=== PATIENT | female | born 1990 | race Asian ===

== ENCOUNTER 2017-07-08 09:36 | Day surgery (SDC) | payer OTHER ==
[2017-07-05 09:13] LABS: BASOPHILS # (AUTO) 0.05 x10^3/uL (0-0.1); BASOPHILS % (AUTO) 1 % (0-1); EOSINOPHILS # (AUTO) 0.03 x10^3/uL (0-0.4); EOSINOPHILS % (AUTO) 0 % (1-7); LYMPHOCYTES # (AUTO) 3.48 x10^3/uL (1-3.4); LYMPHOCYTES % (AUTO) 34 % (22-44); MD NO; MEAN CORPUSCULAR HGB CONC 33.6 g/dL (32.4-35.8); MEAN CORPUSCULAR VOLUME 80.5 fL (80-100); MEAN PLATELET VOLUME 8.2 fL (7.4-10.4); MONOCYTES # (AUTO) 0.68 x10^3/uL (0.2-0.8); MONOCYTES % (AUTO) 7 % (2-9); NEUTROPHILS # (AUTO) 6.12 x10^3/uL (1.8-6.8); NEUTROPHILS % (AUTO) 59 % (42-75); PLATELET COUNT 347 x10^3/uL (130-400); RED BLOOD COUNT 4.67 x10^6/uL (3.82-5.3); RED CELL DISTRIBUTION WIDTH 13.2 % (9.6-15.2)
[2017-07-05 09:25] LABS: ANION GAP 8 mmol/L (5-15); CALCIUM 8.7 mg/dL (8.5-10.1); CHLORIDE 106 mmol/L (98-107)
[2017-07-05 09:30] LABS: CREATININE 0.68 mg/dL (0.55-1.02); T4 (THYROXINE) 12.1 mcg/dL (4.8-13.9)
[2017-07-05 09:45] LABS: CULTURE INDICATED? YES; MICROSCOPIC INDICATED
[~2017-07-08] VITALS: Ht 154.9 cm; Wt 72.3 kg
[~2017-07-08 09:36] MED LIST: IBUP200C8 PO
[2017-07-08] MEDS ORDERED: LACTATED RINGERS 1,000 ML IV SCH (09:53)
[2017-07-08 09:54] VITALS: BP 125/81
[2017-07-08] MEDS ORDERED: SUGAMMADEX 200 MG/2 ML IVPush ONE (11:30)
[2017-07-08] MEDS ORDERED: EPINEPHRINE 1 MG/ML, 1ML ONE (11:41)
[2017-07-08] MEDS ORDERED: INDIGO CARMINE 0.8%, 5ML ONE ×2 (11:42→12:28)
[2017-07-08] MEDS ORDERED: ROCURONIUM 10 MG/ML,10ML ONE (11:49)
[2017-07-08] MEDS ORDERED: ONDANSETRON 2MG/ML, 2ML ONE ×2 (11:49→13:56)
[2017-07-08] MEDS ORDERED: CEFAZOLIN 1,000 MG ONE (11:49)
[2017-07-08] MEDS ORDERED: NEOSTIGMINE 1 MG/ML, 10ML ONE (11:49)
[2017-07-08] MEDS ORDERED: SUCCINYLCHOLINE 20 MG/ML, 10ML ONE (11:49)
[2017-07-08] MEDS ORDERED: PROPOFOL 10 MG/ML, 20ML ONE (11:49)
[2017-07-08] MEDS ORDERED: DEXAMETHASONE 4 MG/ML, 1ML ONE (11:49)
[2017-07-08] MEDS ORDERED: GLYCOPYRROLATE 0.2MG/1ML, 5ML ONE (11:49)
[2017-07-08] MEDS ORDERED: MIDAZOLAM 1 MG/ML, 2ML ONE (11:50)
[2017-07-08] MEDS ORDERED: LIDOCAINE-MPF 2% ,5ML ONE (12:05)
[2017-07-08] MEDS ORDERED: KETOROLAC 30 MG/1 ML ONE (12:05)
[2017-07-08] MEDS ORDERED: LIDOCAINE 1%-EPI 1:100K, 20ML INFIL ONE (12:39)
[2017-07-08] MEDS ORDERED: INDIGO CARMINE 0.8%, 5ML IVPB ONE (12:40)
[2017-07-08] MEDS ORDERED: FENTANYL PF 100 MCG/2ML ONE ×3 (13:22→13:44)
[2017-07-08] MEDS ORDERED: OXYcodone 5 MG/5 ML ORAL.SOL UDC PO PRN (13:30)
[2017-07-08] MEDS ORDERED: KETOROLAC 30 MG/1 ML IM PRN ×2 (13:30)
[2017-07-08] MEDS ORDERED: HYDROcodone/APAP 7.5-325MG/15ML UDC PO PRN (13:30)
[2017-07-08] MEDS ORDERED: MIDAZOLAM 1 MG/ML, 2ML IV PRN (13:30)
[2017-07-08] MEDS ORDERED: morphine SULFATE 10 MG/ML, 1ML IV PRN (13:30)
[2017-07-08] MEDS ORDERED: MEPERIDINE/PF 25MG/0.5ML IVPush PRN (13:30)
[2017-07-08] MEDS ORDERED: KETOROLAC 30 MG/1 ML IV PRN ×2 (13:30)
[2017-07-08] MEDS ORDERED: HYDROmorphone 1 MG/ML, 1ML IV PRN (13:30)
[2017-07-08] MEDS ORDERED: ACETAMINOPHEN 325 MG TABLET PO PRN (13:30)
[2017-07-08] MEDS ORDERED: GLYCOPYRROLATE 0.4 MG/2 ML, 2ML ONE (13:44)
[2017-07-08] MEDS ORDERED: OXYcodone 5 MG/5 ML ORAL.SOL UDC ONE (13:45)
[2017-07-08] MEDS: FENTANYL PF 100 MCG/2ML IV PRN ×3 (13:47→14:35)
[2017-07-08] MEDS ORDERED: GLYCOPYRROLATE 0.2MG/1ML, 5ML IVPush ONE (14:00)
[2017-07-08] MEDS ORDERED: ONDANSETRON 2MG/ML, 2ML IVPush PRN (14:00)
== END 2017-07-08 17:30 | disposition home or self-care (01) ==
LOC: OUT 09:36
PROVIDERS: ATTEND Obstetrics & Gynecology Gynecology
DX: N73.6 Female pelvic peritoneal adhesions (postinfective) (principal); E66.9 Obesity, unspecified; Z90.49 Acquired absence of other specified parts of digestive tract
CPT/HCPCS: 36415; 58660; 80048; 81001; 84436; 84443; 84703; 85025; 87086; 87106; J0171; J0330; J0690; J1100; J1885; J2250; J2405; J2704; J2710; J3010; J3490; J7120

== ENCOUNTER → 2017-08-10 | Outpatient (CLI) | payer OTHER | END | disposition home or self-care (01) | LOC: CFH 08:13 | PROVIDERS: ATTEND Obstetrics & Gynecology Gynecology | DX: R11.2 Nausea with vomiting, unspecified (principal) | CPT/HCPCS: 76700 ==